=== PATIENT | female | born 1985 | race Caucasian/White ===

== ENCOUNTER 2018-01-07 15:59 | Emergency (ER) | payer OTHER ==
[~2018-01-07] VITALS: Ht 175.3 cm; Wt 108.0 kg
[2018-01-07] MEDS ORDERED: ZOFRAN ODT4 MG SL (18:49)
[2018-01-07] MEDS ORDERED: TYLENOL WITH C1 EACH PO (18:49)
[2018-01-07] MEDS ORDERED: IBUPROFEN400 MG PO (18:49)
== END 2018-01-07 19:04 | disposition home or self-care (01) ==
LOC: FSED 15:59
DX: K08.89 Other specified disorders of teeth and supporting structures (principal); K02.9 Dental caries, unspecified
CPT/HCPCS: 99282

== ENCOUNTER 2024-08-11 18:21 | Emergency (ER) | payer OTHER ==
[~2024-08-11] VITALS: Ht 175.3 cm; Wt 112.5 kg
[~2024-08-11 18:21] MED LIST: IBUPROFEN400 MG PO; TYLENOL WITH C1 EACH PO; ZOFRAN ODT4 MG SL
[2024-08-11 18:43] VITALS: PULSE 72; RESP 18; TEMP 97.8
[2024-08-11 19:10] VITALS: BP 173/93; PULSE 72; RESP 18; TEMP 97.8; O2SAT 97
== END 2024-08-11 19:10 | disposition home or self-care (01) ==
LOC: FSED 18:54
DX: T19.2XXA Foreign body in vulva and vagina, initial encounter (principal); N80.9 Endometriosis, unspecified; F43.10 Post-traumatic stress disorder, unspecified; F41.9 Anxiety disorder, unspecified; F32.A Depression, unspecified; Z87.442 Personal history of urinary calculi
CPT/HCPCS: 99283

== ENCOUNTER 2024-10-12 11:16 | Emergency (ER) | payer OTHER ==
[~2024-10-12] VITALS: Ht 177.8 cm; Wt 111.1 kg
[2024-10-12] MEDS ORDERED: NEURONTIN100 MG PO (11:44)
[2024-10-12] MEDS ORDERED: KLONOPIN1 MG PO (11:44)
[2024-10-12] MEDS ORDERED: OMEPRAZOLE40 MG PO (11:44)
[2024-10-12] MEDS ORDERED: ADDERALL 15 MG15 MG (11:44)
[2024-10-12] MEDS ORDERED: LOPERAMIDE2 MG PO (11:44)
[2024-10-12] MEDS ORDERED: IOPAMIDOL 370 MG/ML 100 ML INFUS..BTL INJ ONE (12:19)
[2024-10-12] MEDS: DICYCLOMINE HCL 20 MG/2 ML VIAL IM STA (13:02)
[2024-10-12] MEDS: SODIUM CHLORIDE 0.9% 1000ML 1,000 ML IV STA (13:03)
[2024-10-12] MEDS ORDERED: DICYCLOMINE HCL10 MG PO (13:39)
[2024-10-12] MEDS: Morphine 2mg Syringe 2 MG/ML SYR IV STA (13:53)
[2024-10-12 14:18] VITALS: PULSE 79; RESP 18; TEMP 98.3; O2SAT 97
== END 2024-10-12 14:18 | disposition home or self-care (01) ==
LOC: FSED 11:25
DX: K92.1 Melena (principal); R10.32 Left lower quadrant pain; N83.202 Unspecified ovarian cyst, left side; R11.2 Nausea with vomiting, unspecified; F43.10 Post-traumatic stress disorder, unspecified; N80.9 Endometriosis, unspecified; F41.9 Anxiety disorder, unspecified; F32.A Depression, unspecified; Z87.442 Personal history of urinary calculi
CPT/HCPCS: 74177; 80048; 80076; 81003; 81025; 85025; 96372; 96374; 99284; J0500; J2270; J7030; Q9967